=== PATIENT | male | born 1990 | race Two or more races ===

== ENCOUNTER 2022-06-01 23:47 | Emergency (ER) | payer SELFPAY ==
[2022-06-01 23:48] VITALS: BP 132/78; PULSE 89; RESP 17; TEMP 36.6; O2SAT 99; BMI 29.5
--- NOTE | 2022-06-02 01:13 | HMH.EDALLER ---
ED Disposition Clinical Impression: Bee sting Qualifiers: Encounter type: initial encounter Injury intent: accidental or unintentional Qualified Code(s): T63.441A - Toxic effect of venom of bees, accidental (unintentional), initial encounter Disposition: Home, Self-Care Condition on Discharge: Good Instructions: DI for Insect Bites and Stings Additional Instructions: use meds and see pcp for follow up Prescriptions: clindamycin HCL [Clindamycin HCl] 300 mg PO TID #21 cap Transmission Status: Pending to [id number] predniSONE [Prednisone 20mg Tab] 20 mg PO BID #10 tab Transmission Status: P[facility] to [id number] Referrals: Provider,Referral, MD [Primary Care Provider] - - Critical Care Critical Care Time: No Attestation: On 06/01/22, the high probability of a clinically significant, sudden or life threatening deterioration of the following system(s) required my full and direct attention, intervention and personal management. The time I documented below is in addition to time spent performing reported procedures but includes the following listed in this critical care notation. Medical Decision Making - Medical Records Medical records reviewed: Yes: I reviewed the patient's medical records. - Ben Inquiry Pt receiving controlled substance: No Vital Signs: 06/01/22 23:48 Temperature 97.9 F Temperature Source Oral Pulse Rate [Left Radial] 89 Respiratory Rate 17 Blood Pressure [Right Arm] 132/78 Blood Pressure Mean [Right Arm] 96 Blood Pressure Source [Right Arm] Automatic Cuff Blood Pressure Position [Right Arm] Sitting 02 Sat by Pulse Oximetry 99 Oxygen Delivery Method Room Air - Lab Data Lab results reviewed: Yes: I reviewed the patient's lab results. Orders (Tests/Meds): ED MEDICATIONS Generic Name Dose Route Start Last Admin Trade Name Freq PRN Reason Stop Dose Admin Loratadine 10 mg 06/02/22 09:00 06/02/22 00:53 Loratadine 10mg Tablet PO 07/02/22 08:59 10 mg DAILY URBANO Administration Discontinued Medications Generic Name Dose Route Start Last Admin Trade Name Freq PRN Reason Stop Dose Admin Pantoprazole Sodium 40 mg 06/02/22 00:41 06/02/22 00:46 Pantoprazole 40mg Tablet PO 06/02/22 00:42 40 mg ONCE ONE Administration Prednisone 40 mg 06/02/22 00:41 06/02/22 00:45 Prednisone 20mg Tab PO 06/02/22 00:42 40 mg ONCE ONE Administration Allergic React/Insect Bite HPI - General Chief complaint: Extremity Injury, Lower Stated complaint: Bee sting on left leg,red and swollen Time Seen by Provider: 06/02/22 01:13 Mode of Arrival - ED Triage: Ambulatory Source of Information: Patient, Medical Record Limitations: No Limitations - History of Present Illness HPI narrative: bee sting lt lower ext with reddness and swelling - no sob or wheezing - MD complaint: other (bee sting ) Onset (ago): day(s) Symptoms: other (ext swelling ) Treatment prior to arrival: none Allergies/Adverse Reactions: Allergies Allergy/AdvReac Type Severity Reaction Status Date / Time No Known Allergies Allergy Verified 07/29/18 14:04 Severity: moderate - Related Data Home Medications Medication Instructions Recorded Confirmed omeprazole 10 mg capsule,delayed 10 mg PO DAILY 07/29/18 06/02/22 release Previous Rx's Medication Instructions Recorded clindamycin HCL [Clindamycin HCl] 300 mg PO TID #21 cap 06/02/22 predniSONE [Prednisone 20mg 20 mg PO BID #10 tab 06/02/22 Tab] [facility] History - Hepatitis A Screen Attestation statement:: This patient has been screened for Hepatitis A risk factors. 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
[2022-06-02 01:32] VITALS: BP 130/75; PULSE 85; RESP 18; TEMP 36.7; O2SAT 99
== END 2022-06-02 01:34 | disposition home or self-care (01) ==
PROVIDERS: Emergency Provider Emergency Medicine
DX: T63.441A Toxic effect of venom of bees, accidental (unintentional), initial encounter (principal); Z79.899 Other long term (current) drug therapy; Z72.0 Tobacco use; K21.9 Gastro-esophageal reflux disease without esophagitis
CPT/HCPCS: 99282; 99283